=== PATIENT | male | born 1960 | race Caucasian/White ===

== ENCOUNTER → 2018-12-01 | Outpatient (CLI) | payer OTHER ==
[~2018-12-01] MED LIST: GADOBENATE DIMEGLUMINE 1 ML IV ONE; SODIUM CHLORIDE 0.9% 100 ML 100 ML ONE
--- NOTE | 2018-12-01 09:28 | Diagnostic Imaging Report ---
EXAMINATION: MRI of the Sella without and with contrast HISTORY: Hypogonadism COMPARISON: None available TECHNIQUE: Thin section images of the sella consisting of coronal dynamic T1, sagittal and coronal T1 pre/post contrast, coronal T2. Whole brain DWI/ADC. Intravenous Contrast: 20 mL of MultiHance. Image quality: Artifact from patient's motion limits the evaluation of most of the sequences. FINDINGS: Pituitary gland: Slightly asymmetric enhancement of the pituitary gland with lower enhancement on the right side compared to the left, however no discrete focal lesion is seen, this may correspond to asymmetric perfusion, likely of no clinical significance. Otherwise normal size and configuration of the gland measuring approximately 4.6 mm height. Unremarkable neuro and adenohypophysis. Sella Turcica: Normal in size and configuration. Pituitary stalk: Well visualized and unremarkable. Optic chiasm: Well visualized and unremarkable.. Cavernous sinuses: Normal in size and symmetric. Internal carotid arteries: Normal flow void appearance. Visualized brain parenchyma: Normal, no areas of restricted diffusion. IMPRESSION: Suboptimal study due to patient's motion, grossly no pituitary gland abnormalities. Signed by: Dr. Letty Arias M.D. on 12/01/2018 9:25 AM
--- NOTE | 2018-12-01 10:04 | Diagnostic Imaging Report ---
EXAM: BONE MINERAL DENSITY HISTORY: Bone mineralization evaluation COMPARISON: None DISCUSSION: Evaluation of the left hip and lumbar spine was performed utilizing DEXA Hologic bone densitometer. The study is technically adequate. Left hip femoral neck bone mineral density: 0.69 g/cm2, T-score is -1.8, Z-score is -0.9. Left hip total bone mineral density: 0.86 g/cm2, T-score is -1.1, Z-score is -0.7. Lumbar spine total bone mineral density: 0.87 gm/cm2, T-score is -2.0, Z-score is -1.5. 10 year fracture risk major osteoporotic fracture 6% and hip fracture 0.8%. Impression: Bone mineralization by WHO Classification is low bone mass/osteopenia, the fracture risk is increased. Signed by: Dr. Prosper Alba M.D. on 12/01/2018 10:01 AM
== END ==
LOC: MRI 07:22 → EEVIPCON 08:00
PROVIDERS: ATTEND Urology
DX: E23.0 Hypopituitarism (principal)
CPT/HCPCS: 70553; 77080; A9577

== ENCOUNTER 2021-03-25 14:19 | Emergency (ER) | payer OTHER ==
[2021-03-25] MEDS ORDERED: IOPAMIDOL 370 MG/ML 200 ML INFUS..BTL INJ ONE (14:40)
[2021-03-25] MEDS ORDERED: SODIUM CHLORIDE 0.9% 50ML 50 ML ONE (14:40)
[2021-03-25] MEDS ORDERED: SODIUM CHLORIDE 0.9% 500ML 500 ML IV ONE (14:45)
[2021-03-25] MEDS ORDERED: SODIUM CHLORIDE 0.9% 500ML 500 ML ONE (15:12)
[2021-03-25] MEDS ORDERED: SOTROVIMAB 500 MG in SODIUM CHLORIDE 0.9% 100 ML IV ONE (17:00)
[2021-03-25] MEDS ORDERED: SODIUM CHLORIDE 0.9% 100 ML ONE (17:45)
[2021-03-25] MEDS ORDERED: PROAIR RESPICL90 MCG IH (17:51)
[2021-03-25 18:40] VITALS: BP 103/74
== END 2021-03-25 18:41 | disposition home or self-care (01) ==
LOC: FSED 14:24
DX: U07.1 COVID-19 (principal); R05.9 Cough, unspecified; I48.91 Unspecified atrial fibrillation; G47.30 Sleep apnea, unspecified; R53.83 Other fatigue; F17.210 Nicotine dependence, cigarettes, uncomplicated
CPT/HCPCS: 71260; 80053; 85025; 99283; J7040; J7050; Q9967; U0002